=== PATIENT | female | born 1985 | race Caucasian/White ===

== ENCOUNTER → 2022-09-11 | Outpatient (CLI) | payer BC ==
--- NOTE | 2022-09-11 09:53 | MR ---
EXAMINATION TYPE: MR brain wo/w con DATE OF EXAM: 09/11/2022 COMPARISON: NONE HISTORY: Possible seizure TECHNIQUE: Multiplanar, multisequence images of the brain and brainstem is performed without and with IV contras t, utilizing 11 mL intravenous Gadavist . FINDINGS: Diffusion weighted images demonstrate no evidence of a recent infarct or other diffusion ab normality. There is no extra-axial fluid collection or significant white matter signal abnormality. The ventricular system and cisternal spaces are normal in size and appearance. The brain volume is age appropriate. T2 coronal weighted images show hippocampal gyri appear symmetric. Within normal [place] its. Midline structures demonstrate empty sella morphology. The craniocervical junction appears within no rmal limits. Post contrast images demonstrate no abnormal enhancement. The dural venous sinuses appe ar patent. The visualized sinuses are clear and the globes are intact. IMPRESSION: No suspicious abnormalities are evident.
== END | disposition home or self-care (01) ==
LOC: RADMRIMAIN 07:58 → MERGE 08:15
PROVIDERS: ATTEND Family Medicine
DX: R42 Dizziness and giddiness (principal); R25.1 Tremor, unspecified
CPT/HCPCS: 70553; A9585